=== PATIENT | female | born 1970 | race Caucasian/White ===

== ENCOUNTER → 2025-09-21 | Outpatient (CLI) | payer OTHER ==
[~2025-09-21] MED LIST: 0.9%NACL 1000ML 1,000 ML IV ONE; CYAN50LO PO; LACT1CAP78 PO; MAGN27TA2 PO; PRAS25CA10 PO
--- NOTE | 2025-09-22 05:24 | HMCIMG ---
EXAM: CT Cardiac calcium scoring. CLINICAL HISTORY: CAD screening. TECHNIQUE: Thin collimated axial CT cardiac images were obtained. A CT scan is done according to ALARA (As Low As Reasonably Achievable). CONTRAST: None. COMPARISON: None provided. FINDINGS: Calcium Score: VESSEL Number of lesions Volume mm3 Equi. Mass/mg Calcium score LM 0 00.00 00.00 00.00 LAD 0 00.00 00.00 00.00 LCX 0 00.00 00.00 00.00 RCA 0 00.00 00.00 00.00 Total 0 00.00 00.00 00.00 IMPRESSION: The calcium score is 0. This places the patient into 0th percentile in comparison to a group of patients asymptomatic for coronary artery disease with the same age and gender. This means that 0% of females aged 55-59 have a calcium score that is lower than the patient's. /[place]
== END | disposition home or self-care (01) ==
LOC: RAH 12:56
PROVIDERS: ATTEND Nurse Practitioner Family
DX: Z13.6 Encounter for screening for cardiovascular disorders (principal); I25.10 Atherosclerotic heart disease of native coronary artery without angina pectoris
CPT/HCPCS: 75571; J7030